=== PATIENT | female | born 1960 | race Caucasian/White ===

== ENCOUNTER 2020-09-25 18:17 | Observation (INO) | payer BC ==
[2020-09-25] MEDS ORDERED: Sodium Chloride 0.9% 1,000 ML IV SCH (19:30)
--- NOTE | 2020-09-25 20:59 | CR ---
Chest: Portable view of the chest was obtained. Comparison: No prior chest imaging is available. Heart size and mediastinum are within normal limits for portable technique. Lungs are felt to be clear with no acute parenchymal change. Minimal linear density is noted within the lateral right costophrenic angle which most likely represents small scar. Deformity is noted within the right clavicle compatible with old fracture. No acute osseous finding is otherwise seen. Impression: 1. Findings believed to be incidental as noted above. 2. Nothing acute is appreciated on portable chest x-ray. Diagnostic code #2
--- NOTE | 2020-09-25 21:13 | EDM.PDOC ---
ED HPI GENERAL MEDICAL PROBLEM - General Chief Complaint: Respiratory Problem Stated Complaint: COVID SYMPTOMS Time Seen by Provider: 09/25/20 19:11 Source of Information: Reports: Patient History Limitations: Reports: No Limitations - History of Present Illness INITIAL COMMENTS - FREE TEXT/NARRATIVE: The patient has been positive for Covid first diagnosed little over a week ago. She had been doing well until a few days ago when she started having some vague symptoms, shortness of breath, lethargy. No fever has been noted. There has been a light cough at times. There are no readily identified risk factors. Patient is a non-smoker. She has not had any evaluation or treatment for potential Covid prior to coming to the ER today. - Related Data Allergies Allergy/AdvReac Type Severity Reaction Status Date / Time No Known Allergies Allergy Verified 09/25/20 18:43 Home Meds: Home Meds . [No Known Home Meds] 09/25/20 [History] Past Medical History - Past Health History Medical/Surgical History: Denies Medical/Surgical History Social & Family History - Tobacco Use Tobacco Use Status *Q: Never Tobacco User - Caffeine Use Caffeine Use: Reports: None - Recreational Drug Use Recreational Drug Use: No ED ROS GENERAL - Review of Systems Review Of Systems: Comprehensive ROS is negative, except as noted in HPI. ED EXAM, GENERAL - Physical Exam Exam: See Below Free Text/Narrative:: Patient is alert but a bit listless. Skin is warm and dry with normal turgor. Head normocephalic atraumatic. EOMI PERRLA. Neck is supple without jugular venous distention. Lungs are notable only for somewhat decreased breath sounds bilaterally. Heart is regular without abnormal heart sounds. Abdomen is soft nontender without guarding or rebound. There is no peripheral edema cyanosis or clubbing of the digits. Neurologically patient is intact with fluent speech and no sensory or motor deficit. Patient's mood and affect are normal. #1 Interpretation EKG Date: 09/25/20 Time: 19:55 Rhythm: NSR Rate (Beats/Min): 86 [place]: Normal P-Wave: Present QRS: Normal ST-T: Normal QT: Normal EKG Interpretation Comments: No acute ischemic change Course - Vital Signs Text/Narrative:: The patient's chest x-ray is fairly unremarkable. However she is hypoxemic. White count is low. Discussed fully with patient. She is positive for Covid. She is admitted to the hospital and Solu-Medrol Rocephin and Zithromax have been initiated. Dr. Lr is aware and will be taking care of the patient as hospitalist. Last Recorded V/S: Last Vital Signs Temp 38.7 C H 09/25/20 18:39 Pulse 88 09/25/20 18:39 Resp 18 09/25/20 18:39 BP 128/73 09/25/20 18:39 Pulse Ox 96 09/25/20 18:39 - Orders/Labs/Meds Orders: Active Orders 24 hr Category Date Time Status EKG Documentation Completion [RC] STAT Care 09/25/20 19:26 Active Oxygen Therapy, ED [] ASDIRECTED Care 09/25/20 21:14 Active RT Arterial Blood Gases, ABG [] Click to Edit Care 09/25/20 19:28 Active CULTURE BLOOD [BC] Stat Lab 09/25/20 19:45 Received CULTURE BLOOD [BC] Stat Lab 09/25/20 19:50 Received Sodium Chloride 0.9% [Normal Saline] 1,000 ml Med 09/25/20 19:30 Active IV ASDIRECTED Blood Culture x2 Reflex Set [OM.PC] Stat Oth 09/25/20 19:26 Ordered Medication Orders Sodium Chloride (Normal Saline) 1,000 mls @ 100 mls/hr IV ASDIRECTED OBIE Last Admin: 09/25/20 19:56 Dose: 100 mls/hr Documented by: MARILIA Labs: Laboratory Tests 09/25/20 09/25/20 09/25/20 Range/Units 19:50 19:50 19:50 WBC 2.85 L (3.98-10.04) K/mm3 RBC 4.72 (3.98-5.22) M/mm3 Hgb 13.7 (11.2-15.7) gm/dl Hct 39.6 (34.1-44.9) % MCV 83.9 (79.4-94.8) fl MCH 29.0 (25.6-32.2) pg MCHC 34.6 (32.2-35.5) g/dl RDW Std Deviation 35.9 L (36.4-46.3) fL Plt Count 199 D (182-369) K/mm3 MPV 9.4 (9.4-12.3) fl Neutrophils % (Manual) 65 H (40-60) % Band Neutrophils % 0 (0-10) % Lymphocytes % (Manual) 26 (20-40) % Atypical Lymphs % 0 % Monocytes % (Manual) 9 (2-10) % Eosinophils % (Manual) 0 L (0.7-5.8) % Basophils % (Manual) 0 L (0.1-1.2) Platelet Estimate Adequate RBC Morph Comment Normal D-Dimer, Quantitative 0.50 (0.19-0.50) mg/L Puncture Site ABG pH (7.35-7.45) ABG pCO2 (35.0-45.0) mmHg ABG pO2 (80.0-100.0) mmHg ABG HCO3 (22.0-26.0) meq/L ABG O2 Saturation (96.0-97.0) % ABG Base Excess (-2-2.0) Sunday Test A-a Gradient mmHg O2 Delivery Device Oxygen Flow Rate FiO2 (21.00-100.00) % Sodium 134 L (136-145) mEq/L Potassium 3.8 (3.5-5.1) mEq/L Chloride 96 L (98-107) mEq/L Carbon Dioxide 26 (21-32) mEq/L Anion Gap 15.8 H (5-15) BUN 19 H (7-18) mg/dL Creatinine 1.2 H (0.55-1.02) mg/dL Est Cr Clr Drug Dosing 43.74 mL/min Estimated GFR (MDRD) 46 (>60) mL/min BUN/Creatinine Ratio 15.8 (14-18) Glucose 100 (80-115) mg/dL Calcium 8.8 (8.5-10.1) mg/dL Magnesium 2.2 (1.8-2.4) mg/dl Total Bilirubin 0.6 (0.2-1.0) mg/dL AST 33 (15-37) U/L ALT 39 (14-59) U/L Alkaline Phosphatase 60 (46-116) U/L Troponin I < 0.017 (0.00-0.056) ng/mL Total Protein 8.0 (6.4-8.2) g/dl Albumin 3.9 (3.4-5.0) g/dl Globulin 4.1 gm/dL Albumin/Globulin Ratio 1.0 (1-2) Lipase 206 (73-393) U/L TSH 3rd Generation 2.145 (0.358-3.74) uIU/mL Urine Color (Yellow) Urine Appearance (Clear) Urine pH (5.0-8.0) Ur Specific [place] (1.005-1.030) Urine Protein (Negative) Urine Glucose (UA) (Negative) Urine Ketones (Negative) Urine Occult Blood (Negative) Urine Nitrite (Negative) Urine Bilirubin (Negative) Urine Urobilinogen (0.2-1.0) Ur Leukocyte Esterase (Negative) Urine RBC (0-5) /hpf Urine WBC (0-5) /hpf Ur Squamous Epith Cells (0-5) /hpf Urine Bacteria (FEW) /hpf Urine Mucus (FEW) /hpf SARS-CoV-2 RNA (CARMENZA) (NEGATIVE) 09/25/20 09/25/20 09/25/20 Range/Units 20:07 20:53 21:25 WBC (3.98-10.04) K/mm3 RBC (3.98-5.22) M/mm3 Hgb (11.2-15.7) gm/dl Hct (34.1-44.9) % MCV (79.4-94.8) fl MCH (25.6-32.2) pg MCHC (32.2-35.5) g/dl RDW Std Deviation (36.4-46.3) fL Plt Count (182-369) K/mm3 MPV (9.4-12.3) fl Neutrophils % (Manual) (40-60) % Band Neutrophils % (0-10) % Lymphocytes % (Manual) (20-40) % Atypical Lymphs % % Monocytes % (Manual) (2-10) % Eosinophils % (Manual) (0.7-5.8) % Basophils % (Manual) (0.1-1.2) Platelet Estimate RBC Morph Comment D-Dimer, Quantitative (0.19-0.50) mg/L Puncture Site Lt radial ABG pH 7.43 (7.35-7.45) ABG pCO2 34.2 L (35.0-45.0) mmHg ABG pO2 69.0 L (80.0-100.0) mmHg ABG HCO3 22.5 (22.0-26.0) meq/L ABG O2 Saturation 94.3 L (96.0-97.0) % ABG Base Excess -0.6 (-2-2.0) Sunday Test Positive A-a Gradient 38 mmHg O2 Delivery Device Room air Oxygen Flow Rate 0.0 FiO2 21.00 (21.00-100.00) % Sodium (136-145) mEq/L Potassium (3.5-5.1) mEq/L Chloride (98-107) mEq/L Carbon Dioxide (21-32) mEq/L Anion Gap (5-15) BUN (7-18) mg/dL Creatinine (0.55-1.02) mg/dL Est Cr Clr Drug Dosing mL/min Estimated GFR (MDRD) (>60) mL/min BUN/Creatinine Ratio (14-18) Glucose (80-115) mg/dL Calcium (8.5-10.1) mg/dL Magnesium (1.8-2.4) mg/dl Total Bilirubin (0.2-1.0) mg/dL AST (15-37) U/L ALT (14-59) U/L Alkaline Phosphatase (46-116) U/L Troponin I (0.00-0.056) ng/mL Total Protein (6.4-8.2) g/dl Albumin (3.4-5.0) g/dl Globulin gm/dL Albumin/Globulin Ratio (1-2) Lipase (73-393) U/L TSH 3rd Generation (0.358-3.74) uIU/mL Urine Color Light yellow (Yellow) Urine Appearance Clear (Clear) Urine pH 6.0 (5.0-8.0) Ur Specific [place] 1.015 (1.005-1.030) Urine Protein Trace H (Negative) Urine Glucose (UA) Negative (Negative) Urine Ketones Negative (Negative) Urine Occult Blood Negative (Negative) Urine Nitrite Negative (Negative) Urine Bilirubin Negative (Negative) Urine Urobilinogen 0.2 (0.2-1.0) Ur Leukocyte Esterase Negative (Negative) Urine RBC 0-5 (0-5) /hpf Urine WBC 0-5 (0-5) /hpf Ur Squamous Epith Cells 0-5 (0-5) /hpf Urine Bacteria Few (FEW) /hpf Urine Mucus Few (FEW) /hpf SARS-CoV-2 RNA (CARMENZA) Positive H (NEGATIVE) Meds: Medications Generic Name Dose Route Start Last Admin Trade Name Dann PRN Reason Stop Dose Admin Sodium Chloride 1,000 mls @ 100 mls/hr 09/25/20 19:30 09/25/20 19:56 Normal Saline IV 100 mls/hr ASDIRECTED OBIE Administration Departure - Departure Time of Disposition: 22:23 Disposition: Admitted As Inpatient 64 Condition: Fair Clinical Impression: SARS-CoV-2 positive, Hypoxemia Leukopenia Qualifiers: Leukopenia type: unspecified Qualified Code(s): D72.819 - Decreased white blood cell count, unspecified - Discharge Information Referrals: Cathi Hauser MD [Primary Care Provider] - Forms: ED Department Discharge Sepsis Event Note (ED) - Evaluation Sepsis Screening Result: No Definite Risk - Focused Exam Vital Signs: Vital Signs Temp Pulse Resp BP Pulse Ox 09/25/20 18:39 38.7 C H 88 18 128/73 96 - My Orders Last 24 Hours: My Active Orders 09/25/20 19:26 EKG Documentation Completion [RC] STAT Blood Culture x2 Reflex Set [OM.PC] Stat 09/25/20 19:28 RT Arterial Blood Gases, ABG [RC] Click to Edit 09/25/20 19:30 Sodium Chloride 0.9% [Normal Saline] 1,000 ml IV ASDIRECTED 09/25/20 19:45 CULTURE BLOOD [BC] Stat 09/25/20 19:50 CULTURE BLOOD [BC] Stat 09/25/20 21:14 Oxygen Therapy, ED [RC] ASDIRECTED - Assessment/Plan Last 24 Hours: My Active Orders 09/25/20 19:26 EKG Documentation Completion [RC] STAT Blood Culture x2 Reflex Set [OM.PC] Stat 09/25/20 19:28 RT Arterial Blood Gases, ABG [RC] Click to Edit 09/25/20 19:30 Sodium Chloride 0.9% [Normal Saline] 1,000 ml IV ASDIRECTED 09/25/20 19:45 CULTURE BLOOD [BC] Stat 09/25/20 19:50 CULTURE BLOOD [BC] Stat 09/25/20 21:14 Oxygen Therapy, ED [RC] ASDIRECTED
[2020-09-25] MEDS ORDERED: methylPREDNISolone Sodium Succinate 125 MG/2 ML SDV IVPUSH ONE (22:33)
[2020-09-25] MEDS ORDERED: cefTRIAXone 1 GM AdvVial IV ONE (22:44)
[2020-09-25] MEDS ORDERED: Sodium Chloride 0.9% 100 ML ONE (22:45)
[2020-09-25] MEDS ORDERED: cefTRIAXone 1 GM in Sodium Chloride 0.9% 100 ML IV SCH (22:45)
[2020-09-25] MEDS ORDERED: Azithromycin 500 MG in Sodium Chloride 0.9% 250 ML IV SCH (22:45)
[2020-09-25] MEDS ORDERED: Ondansetron 4 MG/2 ML SDV ONE (23:05)
[2020-09-25] MEDS ORDERED: Ondansetron 4 MG/2 ML SDV IVPUSH ONE ×2 (23:07→23:12)
[2020-09-25] MEDS ORDERED: Acetaminophen 325 MG Tab PO PRN (23:19)
[2020-09-25] MEDS ORDERED: Albuterol 0.083% 2.5 MG/3 ML Neb Soln NEB PRN (23:19)
[2020-09-25] MEDS ORDERED: Ibuprofen 600 MG Tab PO PRN (23:19)
[2020-09-25] MEDS ORDERED: Ondansetron 4 MG/2 ML SDV IV PRN (23:19)
[2020-09-25] MEDS ORDERED: Albuterol/Ipratropium 3.0-0.5 MG/3 ML Neb Soln NEB PRN (23:19)
[2020-09-25] MEDS ORDERED: Famotidine 20 MG Tab PO SCH (23:30)
[2020-09-26] MEDS: Aspirin 325 MG Tab.EC PO SCH ×2 (00:44→08:35)
--- NOTE | 2020-09-26 07:23 | PCM.HP.2 ---
H&P History of Present Illness - General Date of Service: 09/26/20 Admit Problem/Dx: Admission Diagnosis/Problem Admission Diagnosis/Problem Hypoxia Source of Information: Patient, Old Records, Provider, RN, RN Notes Reviewed History Limitations: Reports: No Limitations - History of Present Illness Initial Comments - Free Text/Narative: This is a 60-year-old female who presents to ED on the evening of 09/25/2020 with Covid symptoms. She reports her was first diagnosed with Covid a little over a week ago and she has been doing well until a few days prior. She started to have vague symptoms, shortness of breath and lethargy. No fever noted but there has been a light cough. She is not a smoker. Denies any prior evaluation or treatment for Covid prior to coming to the ED. In the ED twelve-lead EKG is obtained showing a sinus rhythm at 86 bpm with no acute ischemic changes. Chest x-ray is obtained showing incidental findings and nothing acute. Temp in the ED is 38.7 Celsius. Pulse 88. Respirations 18. Blood pressure 128/73. Pulse ox 96% on room air. With Zofran, Rocephin, and 125 mg Solu-Medrol. Labs are obtained with leukopenia noted at 2.85. Hemoglobin 13.7. Platelet 199,000. Neutrophils elevated 65%. There is no bandemia. D-dimer 0.5. Sodium is 134. Potassium 3.8. Chloride 96. Carbon dioxide 26. Anion gap is 15.8. BUN is 19, creatinine 1.2, GFR is 46. Glucose is 100. Calcium 8.8. Magnesium 2.2. Total bilirubin 0.6. AST is 33, ALT 39, alkaline phosphatase 60. Troponin less than 0.017. Protein 8.0. Albumin 3.9. TSH is 2.145. Lipase 206. ABGs obtained in the left radial with a pH of 7.43. PCO2 of 34.2. PO2 of 69.0. HCO3 is 22.5. O2 saturation is 94.3. This is obtained on room air. UA is obtained and is negative however trace protein is noted. SARS-CoV-2 RNA is positive. Patient is subsequent admitted to the medical floor observation status with telemetry for management of her Covid symptoms. Of note: ED provider inadvertently ordered patient inpatient, however hospitalist provider requested inpatient as it is felt patient will not require inpatient length of stay and will likely be discharged in less than 48 hours. She denies any prior past medical history. She sees Dr. Martínez as a primary care provider. She is a full code - Related Data Allergies/Adverse Reactions: Allergies Allergy/AdvReac Type Severity Reaction Status Date / Time No Known Allergies Allergy Verified 09/25/20 18:43 Home Medications: Home Meds Acetaminophen [Tylenol] 2 tab PO Q4HR PRN 09/26/20 [History] Cholecalciferol (Vitamin D3) [Vitamin D3] 1,000 unit PO QAM 09/26/20 [History] L.acidoph,Paracasei, B.lactis [Probiotic] 1 each PO DAILY 09/26/20 [History] Multivit with Calcium,Iron,Min [One Daily Women's] 1 tab PO DAILY 09/26/20 [ History] Zinc 1 tab PO DAILY 09/26/20 [History] Past Medical History - Past Health History Medical/Surgical History: Denies 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 Denies: Headaches, Sore Throat Pulmonary: Reports: No Symptoms. Denies: Shortness of Breath, Wheezing, Cough, Sputum Cardiovascular: Reports: No Symptoms. Denies: Chest Pain, Dyspnea on Exertion, Edema Gastrointestinal: Reports: No Symptoms. Denies: Abdominal Pain, Constipation, Diarrhea, Nausea, Vomiting Genitourinary: Reports: No Symptoms Musculoskeletal: Reports: No Symptoms Skin: Reports: No Symptoms. Denies: Cyanosis Psychiatric: Reports: No Symptoms. Denies: Confusion Neurological: Reports: No Symptoms. Denies: Pre-Existing Deficit, Difficulty Walking, Gait Disturbance Hematologic/Lymphatic: Reports: No Symptoms Immunologic: Reports: No Symptoms Exam - Exam Exam: See Below - Vital Signs Vital Signs: Last Vital Signs Temp 97.7 F 09/26/20 05:25 Pulse 72 09/26/20 05:25 Resp 18 09/26/20 05:25 BP 93/47 L 09/26/20 05:25 Pulse Ox 94 L 09/26/20 06:27 Weight: 142 lb 1.6 oz - Exam Quality Assessment: DVT Prophylaxis. No: Supplemental Oxygen, Urinary Catheter General: Alert, Oriented, Cooperative, Mild Distress (Looks ill) HEENT: Conjunctiva Clear, EACs Clear, Mucosa Moist & [place], Posterior Pharynx Clear Neck: Supple, Trachea Midline Lungs: Clear to Auscultation, Normal Respiratory Effort, Decreased Breath Sounds Cardiovascular: Regular Rate, Regular Rhythm GI/Abdominal Exam: Normal Bowel Sounds, Soft, Non-Tender, No Distention (Female) Exam: Deferred Rectal (Female) Exam: Deferred Back Exam: Normal Inspection, Full Range of Motion Extremities: Normal Inspection, Normal Range of Motion, Non-Tender, No Pedal Edema, Normal Capillary Refill Peripheral Pulses: 2+: Radial (L), Radial (R), Dorsalis Pedis (L), Dorsalis Pedis (R) Skin: Warm, Dry, Intact Neurological: Cranial Nerves Intact (Grossly ) Neuro Extensive - Mental Status: Alert, Oriented x3, Normal Mood/Affect - Patient Data Lab Results Last 24 hrs: Laboratory Results - last 24 hr 09/25/20 09/25/20 09/25/20 Range/Units 19:50 19:50 19:50 WBC 2.85 L (3.98-10.04) K/mm3 RBC 4.72 (3.98-5.22) M/mm3 Hgb 13.7 (11.2-15.7) gm/dl Hct 39.6 (34.1-44.9) % MCV 83.9 (79.4-94.8) fl MCH 29.0 (25.6-32.2) pg MCHC 34.6 (32.2-35.5) g/dl RDW Std Deviation 35.9 L (36.4-46.3) fL Plt Count 199 D (182-369) K/mm3 MPV 9.4 (9.4-12.3) fl Neut % (Auto) (34.0-71.1) % Lymph % (Auto) (19.3-51.7) % Whiteside % (Auto) (4.7-12.5) % Eos % (Auto) (0.7-5.8) Baso % (Auto) (0.1-1.2) % Neut # (Auto) (1.56-6.13) K/mm3 Lymph # (Auto) (1.18-3.74) K/mm3 Whiteside # (Auto) (0.24-0.36) K/mm3 Eos # (Auto) (0.04-0.36) K/mm3 Baso # (Auto) (0.01-0.08) K/mm3 Neutrophils % (Manual) 65 H (40-60) % Band Neutrophils % 0 (0-10) % Lymphocytes % (Manual) 26 (20-40) % Atypical Lymphs % 0 % Monocytes % (Manual) 9 (2-10) % Eosinophils % (Manual) 0 L (0.7-5.8) % Basophils % (Manual) 0 L (0.1-1.2) Platelet Estimate Adequate RBC Morph Comment Normal D-Dimer, Quantitative 0.50 (0.19-0.50) mg/L Puncture Site ABG pH (7.35-7.45) ABG pCO2 (35.0-45.0) mmHg ABG pO2 (80.0-100.0) mmHg ABG HCO3 (22.0-26.0) meq/L ABG O2 Saturation (96.0-97.0) % ABG Base Excess (-2-2.0) Sunday Test A-a Gradient mmHg O2 Delivery Device Oxygen Flow Rate FiO2 (21.00-100.00) % Sodium 134 L (136-145) mEq/L Potassium 3.8 (3.5-5.1) mEq/L Chloride 96 L (98-107) mEq/L Carbon Dioxide 26 (21-32) mEq/L Anion Gap 15.8 H (5-15) BUN 19 H (7-18) mg/dL Creatinine 1.2 H (0.55-1.02) mg/dL Est Cr Clr Drug Dosing 43.74 mL/min Estimated GFR (MDRD) 46 (>60) mL/min BUN/Creatinine Ratio 15.8 (14-18) Glucose 100 (80-115) mg/dL Calcium 8.8 (8.5-10.1) mg/dL Magnesium 2.2 (1.8-2.4) mg/dl Total Bilirubin 0.6 (0.2-1.0) mg/dL AST 33 (15-37) U/L ALT 39 (14-59) U/L Alkaline Phosphatase 60 (46-116) U/L Troponin I < 0.017 (0.00-0.056) ng/mL Total Protein 8.0 (6.4-8.2) g/dl Albumin 3.9 (3.4-5.0) g/dl Globulin 4.1 gm/dL Albumin/Globulin Ratio 1.0 (1-2) Lipase 206 (73-393) U/L TSH 3rd Generation 2.145 (0.358-3.74) uIU/mL Urine Color (Yellow) Urine Appearance (Clear) Urine pH (5.0-8.0) Ur Specific Jay (1.005-1.030) Urine Protein (Negative) Urine Glucose (UA) (Negative) Urine Ketones (Negative) Urine Occult Blood (Negative) Urine Nitrite (Negative) Urine Bilirubin (Negative) Urine Urobilinogen (0.2-1.0) Ur Leukocyte Esterase (Negative) Urine RBC (0-5) /hpf Urine WBC (0-5) /hpf Ur Squamous Epith Cells (0-5) /hpf Urine Bacteria (FEW) /hpf Urine Mucus (FEW) /hpf SARS-CoV-2 RNA (CARMENZA) (NEGATIVE) 09/25/20 09/25/20 09/25/20 Range/Units 20:07 20:53 21:25 WBC (3.98-10.04) K/mm3 RBC (3.98-5.22) M/mm3 Hgb (11.2-15.7) gm/dl Hct (34.1-44.9) % MCV (79.4-94.8) fl MCH (25.6-32.2) pg MCHC (32.2-35.5) g/dl RDW Std Deviation (36.4-46.3) fL Plt Count (182-369) K/mm3 MPV (9.4-12.3) fl Neut % (Auto) (34.0-71.1) % Lymph % (Auto) (19.3-51.7) % Whiteside % (Auto) (4.7-12.5) % Eos % (Auto) (0.7-5.8) Baso % (Auto) (0.1-1.2) % Neut # (Auto) (1.56-6.13) K/mm3 Lymph # (Auto) (1.18-3.74) K/mm3 Whiteside # (Auto) (0.24-0.36) K/mm3 Eos # (Auto) (0.04-0.36) K/mm3 Baso # (Auto) (0.01-0.08) K/mm3 Neutrophils % (Manual) (40-60) % Band Neutrophils % (0-10) % Lymphocytes % (Manual) (20-40) % Atypical Lymphs % % Monocytes % (Manual) (2-10) % Eosinophils % (Manual) (0.7-5.8) % Basophils % (Manual) (0.1-1.2) Platelet Estimate RBC Morph Comment D-Dimer, Quantitative (0.19-0.50) mg/L Puncture Site Lt radial ABG pH 7.43 (7.35-7.45) ABG pCO2 34.2 L (35.0-45.0) mmHg ABG pO2 69.0 L (80.0-100.0) mmHg ABG HCO3 22.5 (22.0-26.0) meq/L ABG O2 Saturation 94.3 L (96.0-97.0) % ABG Base Excess -0.6 (-2-2.0) Sunday Test Positive A-a Gradient 38 mmHg O2 Delivery Device Room air Oxygen Flow Rate 0.0 FiO2 21.00 (21.00-100.00) % Sodium (136-145) mEq/L Potassium (3.5-5.1) mEq/L Chloride (98-107) mEq/L Carbon Dioxide (21-32) mEq/L Anion Gap (5-15) BUN (7-18) mg/dL Creatinine (0.55-1.02) mg/dL Est Cr Clr Drug Dosing mL/min Estimated GFR (MDRD) (>60) mL/min BUN/Creatinine Ratio (14-18) Glucose (80-115) mg/dL Calcium (8.5-10.1) mg/dL Magnesium (1.8-2.4) mg/dl Total Bilirubin (0.2-1.0) mg/dL AST (15-37) U/L ALT (14-59) U/L Alkaline Phosphatase (46-116) U/L Troponin I (0.00-0.056) ng/mL Total Protein (6.4-8.2) g/dl Albumin (3.4-5.0) g/dl Globulin gm/dL Albumin/Globulin Ratio (1-2) Lipase (73-393) U/L TSH 3rd Generation (0.358-3.74) uIU/mL Urine Color Light yellow (Yellow) Urine Appearance Clear (Clear) Urine pH 6.0 (5.0-8.0) Ur Specific Jay 1.015 (1.005-1.030) Urine Protein Trace H (Negative) Urine Glucose (UA) Negative (Negative) Urine Ketones Negative (Negative) Urine Occult Blood Negative (Negative) Urine Nitrite Negative (Negative) Urine Bilirubin Negative (Negative) Urine Urobilinogen 0.2 (0.2-1.0) Ur Leukocyte Esterase Negative (Negative) Urine RBC 0-5 (0-5) /hpf Urine WBC 0-5 (0-5) /hpf Ur Squamous Epith Cells 0-5 (0-5) /hpf Urine Bacteria Few (FEW) /hpf Urine Mucus Few (FEW) /hpf SARS-CoV-2 RNA (CARMENZA) Positive H (NEGATIVE) 09/26/20 Range/Units 05:53 WBC 1.92 L* (3.98-10.04) K/mm3 RBC 4.53 (3.98-5.22) M/mm3 Hgb 13.1 (11.2-15.7) gm/dl Hct 38.0 (34.1-44.9) % MCV 83.9 (79.4-94.8) fl MCH 28.9 (25.6-32.2) pg MCHC 34.5 (32.2-35.5) g/dl RDW Std Deviation 35.9 L (36.4-46.3) fL Plt Count 191 (182-369) K/mm3 MPV 9.8 (9.4-12.3) fl Neut % (Auto) 72.9 H (34.0-71.1) % Lymph % (Auto) 22.9 (19.3-51.7) % Whiteside % (Auto) 4.2 L (4.7-12.5) % Eos % (Auto) 0 L (0.7-5.8) Baso % (Auto) 0.0 L (0.1-1.2) % Neut # (Auto) 1.40 L (1.56-6.13) K/mm3 Lymph # (Auto) 0.44 L (1.18-3.74) K/mm3 [place] # (Auto) 0.08 L (0.24-0.36) K/mm3 Eos # (Auto) 0.00 L (0.04-0.36) K/mm3 Baso # (Auto) 0.00 L (0.01-0.08) K/mm3 Neutrophils % (Manual) (40-60) % Band Neutrophils % (0-10) % Lymphocytes % (Manual) (20-40) % Atypical Lymphs % % Monocytes % (Manual) (2-10) % Eosinophils % (Manual) (0.7-5.8) % Basophils % (Manual) (0.1-1.2) Platelet Estimate RBC Morph Comment D-Dimer, Quantitative (0.19-0.50) mg/L Puncture Site ABG pH (7.35-7.45) ABG pCO2 (35.0-45.0) mmHg ABG pO2 (80.0-100.0) mmHg ABG HCO3 (22.0-26.0) meq/L ABG O2 Saturation (96.0-97.0) % ABG Base Excess (-2-2.0) Sunday Test A-a Gradient mmHg O2 Delivery Device Oxygen Flow Rate FiO2 (21.00-100.00) % Sodium (136-145) mEq/L Potassium (3.5-5.1) mEq/L Chloride (98-107) mEq/L Carbon Dioxide (21-32) mEq/L Anion Gap (5-15) BUN (7-18) mg/dL Creatinine (0.55-1.02) mg/dL Est Cr Clr Drug Dosing mL/min Estimated GFR (MDRD) (>60) mL/min BUN/Creatinine Ratio (14-18) Glucose (80-115) mg/dL Calcium (8.5-10.1) mg/dL Magnesium (1.8-2.4) mg/dl Total Bilirubin (0.2-1.0) mg/dL AST (15-37) U/L ALT (14-59) U/L Alkaline Phosphatase (46-116) U/L Troponin I (0.00-0.056) ng/mL Total Protein (6.4-8.2) g/dl Albumin (3.4-5.0) g/dl Globulin gm/dL Albumin/Globulin Ratio (1-2) Lipase (73-393) U/L TSH 3rd Generation (0.358-3.74) uIU/mL Urine Color (Yellow) Urine Appearance (Clear) Urine pH (5.0-8.0) Ur Specific Jay (1.005-1.030) Urine Protein (Negative) Urine Glucose (UA) (Negative) Urine Ketones (Negative) Urine Occult Blood (Negative) Urine Nitrite (Negative) Urine Bilirubin (Negative) Urine Urobilinogen (0.2-1.0) Ur Leukocyte Esterase (Negative) Urine RBC (0-5) /hpf Urine WBC (0-5) /hpf Ur Squamous Epith Cells (0-5) /hpf Urine Bacteria (FEW) /hpf Urine Mucus (FEW) /hpf SARS-CoV-2 RNA (CARMENZA) (NEGATIVE) Result Diagrams: 09/26/20 05:53 09/26/20 05:53 Sepsis Event Note - Evaluation Sepsis Screening Result: No Definite Risk - Focused Exam Vital Signs: Vital Signs Temp Temp Pulse Pulse Resp BP BP 09/26/20 06:27 09/26/20 05:25 97.7 F 72 18 93/47 L 09/26/20 02:22 99.3 F 09/26/20 01:11 100.4 F 09/26/20 01:09 100.4 F 09/26/20 00:09 102.4 F H 88 16 103/63 09/25/20 23:42 98.9 F 88 18 106/69 Pulse Ox Pulse Ox 09/26/20 06:27 94 L 09/26/20 05:25 95 09/26/20 02:22 09/26/20 01:11 09/26/20 01:09 09/26/20 00:09 92 L 09/25/20 23:42 92 L - Problem List (1) Fever SNOMED Code(s): 862508247 ICD Code: R50.9 - FEVER, UNSPECIFIED Status: Acute Current Visit: Yes (2) Hypoxemia SNOMED Code(s): 450222315 ICD Code: R09.02 - HYPOXEMIA Status: Acute Current Visit: Yes (3) Leukopenia SNOMED Code(s): 46127229, 471049022 ICD Code: D72.819 - DECREASED WHITE BLOOD CELL COUNT, UNSPECIFIED Status: Acute Current Visit: Yes Qualifiers: Leukopenia type: unspecified Qualified Code(s): D72.819 - Decreased white blood cell count, unspecified (4) SARS-CoV-2 positive SNOMED Code(s): 0884159639960801 ICD Code: U07.1 - COVID-19 Status: Acute Current Visit: Yes (5) Volume depletion SNOMED Code(s): 499758821 ICD Code: E86.9 - VOLUME DEPLETION, UNSPECIFIED Status: Acute Priority: High Current Visit: Yes Problem List Initiated/Reviewed/Updated: Yes Orders Last 24hrs: Active Orders 24 hr Category Date Time Status Patient Status [ADT] Routine ADT 09/25/20 22:47 Active Oxygen Therapy [RC] PRN Care 09/25/20 23:19 Active RT Aerosol Therapy [RC] ASDIRECTED Care 09/25/20 23:21 Active RT Arterial Blood Gases, ABG [RC] Click to Edit Care 09/25/20 19:28 Active RT Chest Physiotherapy [RC] ASDIRECTED Care 09/25/20 23:24 Active RT Incentive Spirometry [RC] ASDIRECTED Care 09/25/20 23:24 Active Up ad Shannon [RC] BID Care 09/25/20 23:19 Active VTE/DVT Education [RC] DAILY Care 09/25/20 23:19 Active Vital Signs [RC] Q4HR Care 09/25/20 23:19 Active Regular Diet [DIET] Diet 09/26/20 Breakfast Active C-REACTIVE PROTEIN [CHEM] AM Lab 09/26/20 05:53 Received CBC WITH AUTO DIFF [HEME] AM Lab 09/26/20 05:53 Results CMP [COMPREHENSIVE METABOLIC PN,CMP] [CHEM] AM Lab 09/26/20 05:53 Received CULTURE BLOOD [BC] Stat Lab 09/25/20 19:45 Received CULTURE BLOOD [BC] Stat Lab 09/25/20 19:50 Received DD [D-DIMER QUANTITATIVE] [COAG] AM Lab 09/26/20 05:53 Received MAGNESIUM [CHEM] AM Lab 09/26/20 05:53 Received PHOSPHORUS [CHEM] AM Lab 09/26/20 05:53 Received Acetaminophen [TylenoL] Med 09/25/20 23:19 Active 650 mg PO Q4H PRN Albuterol [Proventil Neb Soln] Med 09/25/20 23:19 Active 2.5 mg NEB Q2H PRN Albuterol/Ipratropium [DuoNeb 3.0-0.5 MG/3 ML] Med 09/25/20 23:19 Active 3 ml NEB Q4H PRN Aspirin [Ecotrin] Med 09/25/20 23:30 Active 325 mg PO DAILY Cholecalciferol (Vitamin D3) [Vitamin D3] Med 09/26/20 09:00 Active 5,000 unit PO DAILY Enoxaparin [Lovenox] Med 09/26/20 09:00 Active 40 mg SUBCUT DAILY Famotidine [Pepcid] Med 09/25/20 23:30 Active 20 mg PO BID Ibuprofen [Motrin] Med 09/25/20 23:19 Active 600 mg PO Q6H PRN Melatonin Med 09/26/20 21:00 Active 9 mg PO BEDTIME Ondansetron [Zofran] Med 09/25/20 23:19 Active 4 mg IV Q4H PRN Zinc Sulfate [Zincate] Med 09/26/20 09:00 Active 220 mg PO DAILY Blood Culture x2 Reflex Set [OM.PC] Stat Oth 09/25/20 19:26 Ordered Pulse Oximetry Continuous Monitoring [OM.PC] Routine Oth 09/26/20 00:00 Active Resuscitation Status Routine Resus Stat 09/25/20 23:19 Ordered Medication Orders Acetaminophen (Acetaminophen 325 Mg Tab) 650 mg PO Q4H PRN PRN Reason: Pain (Mild 1-3)/fever Last Admin: 09/26/20 01:11 Dose: 650 mg Documented by: BRADJUL Albuterol (Albuterol 0.083% 2.5 Mg/3 Ml Neb Soln) 2.5 mg NEB Q2H PRN PRN Reason: Shortness Of Breath/wheezing Albuterol/Ipratropium (Albuterol/Ipratropium 3.0-0.5 Mg/3 Ml Neb Soln) 3 ml NEB Q4H PRN PRN Reason: Shortness Of Breath/wheezing Aspirin (Aspirin 325 Mg Tab.Ec) 325 mg PO DAILY [facility] Last Admin: 09/26/20 00:44 Dose: 325 mg Documented by: GIORGIO Cholecalciferol (Cholecalciferol (Vitamin D3) 5,000 Unit Cap) 5,000 unit PO DAILY [facility] Enoxaparin Sodium (Enoxaparin 40 Mg/0.4 Ml Syringe) 40 mg SUBCUT DAILY [facility] Famotidine (Famotidine 20 Mg Tab) 20 mg PO BID [facility] Last Admin: 09/26/20 00:44 Dose: 20 mg Documented by: GIORGIO Ibuprofen (Ibuprofen 600 Mg Tab) 600 mg PO Q6H PRN PRN Reason: Pain (moderate 4-6) Melatonin (Melatonin 3 Mg Tab) 9 mg PO BEDTIME OBIE Ondansetron HCl (Ondansetron 4 Mg/2 Ml Sdv) 4 mg IV Q4H PRN PRN Reason: Nausea/Vomiting Zinc Sulfate (Zinc Sulfate 220 Mg Cap) 220 mg PO DAILY [facility] Assessment/Plan Comment:: Assessment - 09/26/2020 (admitted late 09/25/2020) * 60-year-old female presents to our ED with Covid-like symptoms. * Patient's was diagnosed with Covid approximately week prior * Patient raised ports symptoms began for her a few days prior with shortness of breath, lethargy, and vague symptoms. * Twelve-lead EKG obtained in ED shows sinus rhythm at 86 bpm with no signs of ischemia. * Patient noted to have fever in ED of 38.7 Celsius. * Labs obtained in ED and on floor: * WBC 2.85-->1.92 * Hemoglobin 13.7-->13.1 * Platelet 199,000-->191,000 * Neutrophils 65% but no bandemia-->72.9% * D-dimer 0.50-->0.50 * Sodium 134-->134 * Potassium 3.8-->3.8 * Chloride 96-->99 * Carbon dioxide 26-->21 * Anion gap 15.8-->17.8 * BUN 19-->21 * Creatinine 1.2-->1.2 * Phosphorus 5.0 * Magnesium 2.2 * GFR 46-->46 * Glucose 100-->150 * Total bilirubin 0.6-->0.3 * AST 33-->35, ALT 39-->37, alkaline phosphatase 60-->55 * Troponin less than 0.017 * Albumin 3.9-->3.4 * Lipase 206 * TSH 2.145 * UA negative but trace protein noted * ABG left radial: pH 7.43, PCO2 34.2, PO2 69.0, HCO3 of 22.5, O2 saturation 94.3, A-a gradient 38 obtained on room air * SARS Covid 2 RNA positive * Given Rocephin, Zofran, and 125 mg Solu-Medrol in the ED. * Chest x-ray shows incidental findings and nothing acute. * Patient admitted to medical surgical floor for management of COVID-19 symptoms. PLAN: Fever Hypoxemia Leukopenia SARS-CoV-2 positive Volume depletion * Tylenol/motrin for fever/pain * 1L LR bolus now * D5LR at 100ml/hr after bolus * Monitor oxygen saturations - Goal 88-95% * IS/Acapella * Prone whenever able * Ambulate TID * Albuterol/Duonebs PRN * No need for steroids now as patient is not requiring oxygen * No Abx as no signs of PNA * Will hold off Remdisivir for now * RT consultation * Airborne/Contact precautions * Telemetry/Pulse oximetry * Blood cultures pending * Daily labs * Q48hr D-Dimer * Daily ASA * Melatonin at bedtime * Zinc supplementation * Vitamin D supplementation Code status: Full code PCP: Dr. Martínez DVT prophylaxis: Lovenox Social: Patient resides with her who also has COVID-19 and is hospitalized Disposition: Admitted to [facility] observation status on telemetry for management of COVID-19 symptoms and volume depletion. Likely discharge today. - Mortality Measure Prognosis:: Good
[2020-09-26] MEDS ORDERED: Docusate Sodium 100 MG Cap PO PRN (08:01)
[2020-09-26] MEDS ORDERED: Magnesium Hydroxide 400 MG/5 ML Susp 30 ML Cup PO PRN (08:01)
[2020-09-26] MEDS ORDERED: Lactated Ringers 1,000 ML IV ONE (08:32)
[2020-09-26] MEDS ORDERED: Dextrose 5%-Lactated Ringers 1,000 ML IV SCH (08:45)
[2020-09-26] MEDS ORDERED: Enoxaparin 40 MG/0.4 ML Syringe SUBCUT SCH (09:00)
[2020-09-26] MEDS ORDERED: Saccharomyces Boulardii (Probiotic) 250 MG Cap PO SCH (09:00)
[2020-09-26] MEDS ORDERED: Cholecalciferol (Vitamin D3) 5,000 UNIT Cap PO SCH (09:00)
[2020-09-26] MEDS ORDERED: Multivitamins,Therapeutic Tab PO SCH (09:00)
[2020-09-26] MEDS ORDERED: Cholecalciferol (Vitamin D3) 25 MCG Tab PO SCH (09:00)
[2020-09-26] MEDS ORDERED: Zinc Sulfate 220 MG Cap PO SCH ×2 (09:00)
--- NOTE | 2020-09-26 13:12 | PCM.DCSUM1 ---
Discharge Summary - Hospital Course HPI Initial Comments: This is a 60-year-old female who presents to ED on the evening of 09/25/2020 with Covid symptoms. She reports her was first diagnosed with Covid a little over a week ago and she has been doing well until a few days prior. She started to have vague symptoms, shortness of breath and lethargy. No fever noted but there has been a light cough. She is not a smoker. Denies any prior evaluation or treatment for Covid prior to coming to the ED. In the ED twelve-lead EKG is obtained showing a sinus rhythm at 86 bpm with no acute ischemic changes. Chest x-ray is obtained showing incidental findings and nothing acute. Temp in the ED is 38.7 Celsius. Pulse 88. Respirations 18. Blood pressure 128/73. Pulse ox 96% on room air. With Zofran, Rocephin, and 125 mg Solu-Medrol. Labs are obtained with leukopenia noted at 2.85. Hemoglobin 13.7. Platelet 199,000. Neutrophils elevated 65%. There is no bandemia. D-dimer 0.5. Sodium is 134. Potassium 3.8. Chloride 96. Carbon dioxide 26. Anion gap is 15.8. BUN is 19, creatinine 1.2, GFR is 46. Glucose is 100. Calcium 8.8. Magnesium 2.2. Total bilirubin 0.6. AST is 33, ALT 39, alkaline phosphatase 60. Troponin less than 0.017. Protein 8.0. Albumin 3.9. TSH is 2.145. Lipase 206. ABGs obtained in the left radial with a pH of 7.43. PCO2 of 34.2. PO2 of 69.0. HCO3 is 22.5. O2 saturation is 94.3. This is obtained on room air. UA is obtained and is negative however trace protein is noted. SARS-CoV-2 RNA is positive. Patient is subsequent admitted to the medical floor observation status with telemetry for management of her Covid symptoms. Of note: ED provider inadvertently ordered patient inpatient, however hospitalist provider requested inpatient as it is felt patient will not require inpatient length of stay and will likely be discharged in less than 48 hours. She denies any prior past medical history. She sees Dr. Martínez as a primary care provider. She is a full code Diagnosis: Stroke: No - Discharge Data Discharge Date: 09/26/20 (Admit 09/25/20) Discharge Disposition: Home, Self-Care 01 Condition: Good - Referral to Home Health Primary Care Physician: Cathi Hauser MD - Discharge Diagnosis/Problem(s) (1) Fever SNOMED Code(s): 039917550 ICD Code: R50.9 - FEVER, UNSPECIFIED Status: Acute Current Visit: Yes (2) Hypoxemia SNOMED Code(s): 030606381 ICD Code: R09.02 - HYPOXEMIA Status: Ruled-out Current Visit: Yes (3) Leukopenia SNOMED Code(s): 58778382, 008978990 ICD Code: D72.819 - DECREASED WHITE BLOOD CELL COUNT, UNSPECIFIED Status: Acute Current Visit: Yes Qualifiers: Leukopenia type: unspecified Qualified Code(s): D72.819 - Decreased white blood cell count, unspecified (4) SARS-CoV-2 positive SNOMED Code(s): 2307106832982326 ICD Code: U07.1 - COVID-19 Status: Acute Current Visit: Yes (5) Volume depletion SNOMED Code(s): 615249669 ICD Code: E86.9 - VOLUME DEPLETION, UNSPECIFIED Status: Acute Priority: High Current Visit: Yes - Patient Summary/Data Consults: Consultations 09/26/20 08:01 Respiratory Care Assess and Treatment [CONS] Routine Labs Pending at D/C: None Recommended Follow-up Testing/Procedures: Follow-up with primary care provider within 7-10 days of discharge, sooner if needed. Hospital Course: This is a 4-year-old female who was admitted to the hospital floor observation status late on 09/25/2020 due to Covid symptoms. Patient's was diagnosed with Covid approximately 1 week prior and she had been doing well although started to have generalized weakness and felt like she was progressing along in a similar fashion to her 1 week prior. In the ED patient was neutropenic but otherwise CBC was unremarkable. CMP showed an elevated anion gap, elevated BUN, elevated creatinine, and a GFR 46. Patient was noted to be SARS-CoV-2 RNA positive. She was given Rocephin, Zofran, and 125 mg Solu-Medrol in the ED. Her chest x-ray showed nothing acute and other incidental findings were noted. She was admitted to the medical surgical floor. Of note initial order placed was for inpatient status however attending hospitalist had requested patient be admitted observation status and this was entered in error. This was fixed today. On the floor patient remained very stable. She was not requiring any oxygen and therefore steroids were not given. Antibiotics were discontinued as there is no indication for them. She reported she was weak and occasionally dizzy but otherwise denied any shortness of breath or other symptoms. It sounds like patient was quite adamant about being admitted because she was worried about worsening symptoms. We discussed plan of care and how given her current state we really do not have much more to offer her that cannot be done at home. Her labs indicated she did have some volume depletion she was given a liter fluid bolus and also started on D5LR at 100 mils an hour. She was noted to have a fever in the ED and initially on the floor but this has resolved. Plan will be to discharge the patient and plan for outpatient infusion of monoclonal antibodies, as the patient really did not require any significant COVID-19 treatment while here. She is already taking her home vitamin D and zinc supplementation. Vitamin D was checked here and was within normal limits. She has no concerns. She will be discharged home today. No new prescription meds. She was instructed to continue to utilize her incentive spirometer and Acapella for 1 to 2 weeks or until symptoms resolve. She was directed to take [id number] Tylenol and/or Motrin for fevers and pain as needed. She instructed to take a 81 mg baby aspirin for the next 14 days as her been some studies that have showed a possible benefit with this for Covid patients. Discharged home today. - Patient Instructions Diet: Usual Diet as Tolerated Activity: As Tolerated Showering/Bathing: May Shower Notify Provider of: Fever, Increased Pain, Nausea and/or Vomiting Other/Special Instructions: Follow-up with primary care provider within 5-7 days of discharge, sooner if needed. Recommend you start an 81mg baby aspirin and continue this for 14 days. Studies have shown there may be some benefit to this. Take tylenol or motrin for fevers. You may alternate these if needed. Follow marketing graphics specialist dosing recommendations. Record your pulse oximetry twice a day in a journal. Bring this with to all medical appointments. Your goal saturations are 88-95%. It is ok if you are highter than this. Continue to utilize your incentive spirometer (clear/blue device you inhale through) and acapella (green tube you blow through) for the next 1-2 weeks, or until symptoms resolve. Continue to prone (lay on your stomach) whenever able. You need to is olate/quarantine for a total of 20 days from when symptoms first began. You will likely be contacted by a case consultant from the [facility]. Follow their directions in regards to this. Should symptoms return or worsen contact primary care provdider or return to the Emergency Department. - Discharge Plan *PRESCRIPTION DRUG MONITORING PROGRAM REVIEWED*: No *COPY OF PRESCRIPTION DRUG MONITORING REPORT IN PATIENT LATASHA: No Home Medications: Home Meds Acetaminophen [Tylenol] 2 tab PO Q4HR PRN 09/26/20 [History] Cholecalciferol (Vitamin D3) [Vitamin D3] 1,000 unit PO QAM 09/26/20 [History] L.acidoph,Paracasei, B.lactis [Probiotic] 1 each PO DAILY 09/26/20 [History] Multivit with Calcium,Iron,Min [One Daily Women's] 1 tab PO DAILY 09/26/20 [History] Zinc 1 tab PO DAILY 09/26/20 [History] Oxygen Therapy Mode: Room Air Patient Handouts: COVID-19, How to Use an Incentive Spirometer, Coronavirus Information 09/10/19, Prevent the Spread of COVID-19 if You Are Sick - CDC, Sepsis, Self Care, Adult Forms: ED Department Discharge Referrals: Cathi Hauser MD [Primary Care Provider] - 10/03/20 2:30 pm () - Discharge Summary/Plan Comment DC Time >30 min.: No - General Info Date of Service: 09/26/20 Admission Dx/Problem (Free Text: Admission Diagnosis/Problem Admission Diagnosis/Problem Hypoxia Functional Status: Reports: Pain Controlled, Tolerating Diet, Ambulating, Urinating, Incentive Spirometry, Other (Acapella ). Denies: New Symptoms - Review of Systems General: Reports: Weakness, Fatigue, Malaise. Denies: Fever, Chills HEENT: Reports: No Symptoms. Denies: Headaches, Sore Throat Pulmonary: Reports: No Symptoms. Denies: Shortness of Breath, Cough, Sputum, Wheezing Cardiovascular: Reports: Lightheadedness (at times ). Denies: Chest Pain, Palpitations, Dyspnea on Exertion, Edema Gastrointestinal: Reports: No Symptoms. Denies: Abdominal Pain, Constipation, Diarrhea, Nausea, Vomiting Genitourinary: Reports: No Symptoms. Denies: Pain Musculoskeletal: Reports: No Symptoms Skin: Reports: No Symptoms. Denies: Cyanosis Neurological: Reports: Dizziness (at times ), Weakness. Denies: Confusion, Headache, Numbness, Pre-Existing Deficit, Seizure, Syncope, Tingling, Trouble Speaking, Difficulty Walking, Change in Speech, Gait Disturbance Psychiatric: Reports: No Symptoms - Patient Data Vitals - Most Recent: Last Vital Signs Temp 97.5 F 09/26/20 11:32 Pulse 69 09/26/20 11:32 Resp 16 09/26/20 11:32 BP 98/63 09/26/20 11:32 Pulse Ox 92 L 09/26/20 11:32 Weight - Most Recent: 142 lb 1.6 oz I&O - Last 24 hours: Intake & Output 09/25/20 09/26/20 09/26/20 22:59 06:59 14:59 Intake Total 200 Output Total 250 Balance -50 Lab Results - Last 24 hrs: Laboratory Results - last 24 hr 09/25/20 09/25/20 09/25/20 Range/Units 19:50 19:50 19:50 WBC 2.85 L (3.98-10.04) K/mm3 RBC 4.72 (3.98-5.22) M/mm3 Hgb 13.7 (11.2-15.7) gm/dl Hct 39.6 (34.1-44.9) % MCV 83.9 (79.4-94.8) fl MCH 29.0 (25.6-32.2) pg MCHC 34.6 (32.2-35.5) g/dl RDW Std Deviation 35.9 L (36.4-46.3) fL Plt Count 199 D (182-369) K/mm3 MPV 9.4 (9.4-12.3) fl Neut % (Auto) (34.0-71.1) % Lymph % (Auto) (19.3-51.7) % Runnels % (Auto) (4.7-12.5) % Eos % (Auto) (0.7-5.8) Baso % (Auto) (0.1-1.2) % Neut # (Auto) (1.56-6.13) K/mm3 Lymph # (Auto) (1.18-3.74) K/mm3 Runnels # (Auto) (0.24-0.36) K/mm3 Eos # (Auto) (0.04-0.36) K/mm3 Baso # (Auto) (0.01-0.08) K/mm3 Neutrophils % (Manual) 65 H (40-60) % Band Neutrophils % 0 (0-10) % Lymphocytes % (Manual) 26 (20-40) % Atypical Lymphs % 0 % Monocytes % (Manual) 9 (2-10) % Eosinophils % (Manual) 0 L (0.7-5.8) % Basophils % (Manual) 0 L (0.1-1.2) Manual Slide Review Platelet Estimate Adequate RBC Morph Comment Normal D-Dimer, Quantitative 0.50 (0.19-0.50) mg/L Puncture Site ABG pH (7.35-7.45) ABG pCO2 (35.0-45.0) mmHg ABG pO2 (80.0-100.0) mmHg ABG HCO3 (22.0-26.0) meq/L ABG O2 Saturation (96.0-97.0) % ABG Base Excess (-2-2.0) Sunday Test A-a Gradient mmHg O2 Delivery Device Oxygen Flow Rate FiO2 (21.00-100.00) % Sodium 134 L (136-145) mEq/L Potassium 3.8 (3.5-5.1) mEq/L Chloride 96 L (98-107) mEq/L Carbon Dioxide 26 (21-32) mEq/L Anion Gap 15.8 H (5-15) BUN 19 H (7-18) mg/dL Creatinine 1.2 H (0.55-1.02) mg/dL Est Cr Clr Drug Dosing 43.74 mL/min Estimated GFR (MDRD) 46 (>60) mL/min BUN/Creatinine Ratio 15.8 (14-18) Glucose 100 (80-115) mg/dL Calcium 8.8 (8.5-10.1) mg/dL Phosphorus (2.6-4.7) mg/dL Magnesium 2.2 (1.8-2.4) mg/dl Total Bilirubin 0.6 (0.2-1.0) mg/dL AST 33 (15-37) U/L ALT 39 (14-59) U/L Alkaline Phosphatase 60 (46-116) U/L Troponin I < 0.017 (0.00-0.056) ng/mL C-Reactive Protein (<1.0) mg/dL Total Protein 8.0 (6.4-8.2) g/dl Albumin 3.9 (3.4-5.0) g/dl Globulin 4.1 gm/dL Albumin/Globulin Ratio 1.0 (1-2) Lipase 206 (73-393) U/L Vitamin D 25-Hydroxy (30.0-100.0) ng/ml TSH 3rd Generation 2.145 (0.358-3.74) uIU/mL Urine Color (Yellow) Urine Appearance (Clear) Urine pH (5.0-8.0) Ur Specific [place] (1.005-1.030) Urine Protein (Negative) Urine Glucose (UA) (Negative) Urine Ketones (Negative) Urine Occult Blood (Negative) Urine Nitrite (Negative) Urine Bilirubin (Negative) Urine Urobilinogen (0.2-1.0) Ur Leukocyte Esterase (Negative) Urine RBC (0-5) /hpf Urine WBC (0-5) /hpf Ur Squamous Epith Cells (0-5) /hpf Urine Bacteria (FEW) /hpf Urine Mucus (FEW) /hpf SARS-CoV-2 RNA (CARMENZA) (NEGATIVE) 09/25/20 09/25/20 09/25/20 Range/Units 20:07 20:53 21:25 WBC (3.98-10.04) K/mm3 RBC (3.98-5.22) M/mm3 Hgb (11.2-15.7) gm/dl Hct (34.1-44.9) % MCV (79.4-94.8) fl MCH (25.6-32.2) pg MCHC (32.2-35.5) g/dl RDW Std Deviation (36.4-46.3) fL Plt Count (182-369) K/mm3 MPV (9.4-12.3) fl Neut % (Auto) (34.0-71.1) % Lymph % (Auto) (19.3-51.7) % Runnels % (Auto) (4.7-12.5) % Eos % (Auto) (0.7-5.8) Baso % (Auto) (0.1-1.2) % Neut # (Auto) (1.56-6.13) K/mm3 Lymph # (Auto) (1.18-3.74) K/mm3 Runnels # (Auto) (0.24-0.36) K/mm3 Eos # (Auto) (0.04-0.36) K/mm3 Baso # (Auto) (0.01-0.08) K/mm3 Neutrophils % (Manual) (40-60) % Band Neutrophils % (0-10) % Lymphocytes % (Manual) (20-40) % Atypical Lymphs % % Monocytes % (Manual) (2-10) % Eosinophils % (Manual) (0.7-5.8) % Basophils % (Manual) (0.1-1.2) Manual Slide Review Platelet Estimate RBC Morph Comment D-Dimer, Quantitative (0.19-0.50) mg/L Puncture Site Lt radial ABG pH 7.43 (7.35-7.45) ABG pCO2 34.2 L (35.0-45.0) mmHg ABG pO2 69.0 L (80.0-100.0) mmHg ABG HCO3 22.5 (22.0-26.0) meq/L ABG O2 Saturation 94.3 L (96.0-97.0) % ABG Base Excess -0.6 (-2-2.0) Sunady Test Positive A-a Gradient 38 mmHg O2 Delivery Device Room air Oxygen Flow Rate 0.0 FiO2 21.00 (21.00-100.00) % Sodium (136-145) mEq/L Potassium (3.5-5.1) mEq/L Chloride (98-107) mEq/L Carbon Dioxide (21-32) mEq/L Anion Gap (5-15) BUN (7-18) mg/dL Creatinine (0.55-1.02) mg/dL Est Cr Clr Drug Dosing mL/min Estimated GFR (MDRD) (>60) mL/min BUN/Creatinine Ratio (14-18) Glucose (80-115) mg/dL Calcium (8.5-10.1) mg/dL Phosphorus (2.6-4.7) mg/dL Magnesium (1.8-2.4) mg/dl Total Bilirubin (0.2-1.0) mg/dL AST (15-37) U/L ALT (14-59) U/L Alkaline Phosphatase (46-116) U/L Troponin I (0.00-0.056) ng/mL C-Reactive Protein (<1.0) mg/dL Total Protein (6.4-8.2) g/dl Albumin (3.4-5.0) g/dl Globulin gm/dL Albumin/Globulin Ratio (1-2) Lipase (73-393) U/L Vitamin D 25-Hydroxy (30.0-100.0) ng/ml TSH 3rd Generation (0.358-3.74) uIU/mL Urine Color Light yellow (Yellow) Urine Appearance Clear (Clear) Urine pH 6.0 (5.0-8.0) Ur Specific [place] 1.015 (1.005-1.030) Urine Protein Trace H (Negative) Urine Glucose (UA) Negative (Negative) Urine Ketones Negative (Negative) Urine Occult Blood Negative (Negative) Urine Nitrite Negative (Negative) Urine Bilirubin Negative (Negative) Urine Urobilinogen 0.2 (0.2-1.0) Ur Leukocyte Esterase Negative (Negative) Urine RBC 0-5 (0-5) /hpf Urine WBC 0-5 (0-5) /hpf Ur Squamous Epith Cells 0-5 (0-5) /hpf Urine Bacteria Few (FEW) /hpf Urine Mucus Few (FEW) /hpf SARS-CoV-2 RNA (CARMENZA) Positive H (NEGATIVE) 09/26/20 09/26/20 09/26/20 Range/Units 05:53 05:53 05:53 WBC 1.92 L* (3.98-10.04) K/mm3 RBC 4.53 (3.98-5.22) M/mm3 Hgb 13.1 (11.2-15.7) gm/dl Hct 38.0 (34.1-44.9) % MCV 83.9 (79.4-94.8) fl MCH 28.9 (25.6-32.2) pg MCHC 34.5 (32.2-35.5) g/dl RDW Std Deviation 35.9 L (36.4-46.3) fL Plt Count 191 (182-369) K/mm3 MPV 9.8 (9.4-12.3) fl Neut % (Auto) 72.9 H (34.0-71.1) % Lymph % (Auto) 22.9 (19.3-51.7) % Runnels % (Auto) 4.2 L (4.7-12.5) % Eos % (Auto) 0 L (0.7-5.8) Baso % (Auto) 0.0 L (0.1-1.2) % Neut # (Auto) 1.40 L (1.56-6.13) K/mm3 Lymph # (Auto) 0.44 L (1.18-3.74) K/mm3 Runnels # (Auto) 0.08 L (0.24-0.36) K/mm3 Eos # (Auto) 0.00 L (0.04-0.36) K/mm3 Baso # (Auto) 0.00 L (0.01-0.08) K/mm3 Neutrophils % (Manual) (40-60) % Band Neutrophils % (0-10) % Lymphocytes % (Manual) (20-40) % Atypical Lymphs % % Monocytes % (Manual) (2-10) % Eosinophils % (Manual) (0.7-5.8) % Basophils % (Manual) (0.1-1.2) Manual Slide Review Abnormal smear Platelet Estimate RBC Morph Comment D-Dimer, Quantitative 0.55 H (0.19-0.50) mg/L Puncture Site ABG pH (7.35-7.45) ABG pCO2 (35.0-45.0) mmHg ABG pO2 (80.0-100.0) mmHg ABG HCO3 (22.0-26.0) meq/L ABG O2 Saturation (96.0-97.0) % ABG Base Excess (-2-2.0) Sunday Test A-a Gradient mmHg O2 Delivery Device Oxygen Flow Rate FiO2 (21.00-100.00) % Sodium 134 L (136-145) mEq/L Potassium 3.8 (3.5-5.1) mEq/L Chloride 99 (98-107) mEq/L Carbon Dioxide 21 (21-32) mEq/L Anion Gap 17.8 H (5-15) BUN 21 H (7-18) mg/dL Creatinine 1.2 H (0.55-1.02) mg/dL Est Cr Clr Drug Dosing 40.21 mL/min Estimated GFR (MDRD) 46 (>60) mL/min BUN/Creatinine Ratio 17.5 (14-18) Glucose 150 H (80-115) mg/dL Calcium 8.0 L (8.5-10.1) mg/dL Phosphorus 5.0 H (2.6-4.7) mg/dL Magnesium 2.2 (1.8-2.4) mg/dl Total Bilirubin 0.3 (0.2-1.0) mg/dL AST 35 (15-37) U/L ALT 37 (14-59) U/L Alkaline Phosphatase 55 (46-116) U/L Troponin I (0.00-0.056) ng/mL C-Reactive Protein 1.1 H* (<1.0) mg/dL Total Protein 7.4 (6.4-8.2) g/dl Albumin 3.4 (3.4-5.0) g/dl Globulin 4.0 gm/dL Albumin/Globulin Ratio 0.9 L (1-2) Lipase (73-393) U/L Vitamin D 25-Hydroxy (30.0-100.0) ng/ml TSH 3rd Generation (0.358-3.74) uIU/mL Urine Color (Yellow) Urine Appearance (Clear) Urine pH (5.0-8.0) Ur Specific [place] (1.005-1.030) Urine Protein (Negative) Urine Glucose (UA) (Negative) Urine Ketones (Negative) Urine Occult Blood (Negative) Urine Nitrite (Negative) Urine Bilirubin (Negative) Urine Urobilinogen (0.2-1.0) Ur Leukocyte Esterase (Negative) Urine RBC (0-5) /hpf Urine WBC (0-5) /hpf Ur Squamous Epith Cells (0-5) /hpf Urine Bacteria (FEW) /hpf Urine Mucus (FEW) /hpf SARS-CoV-2 RNA (CARMENZA) (NEGATIVE) 09/26/20 Range/Units 06:20 WBC (3.98-10.04) K/mm3 RBC (3.98-5.22) M/mm3 Hgb (11.2-15.7) gm/dl Hct (34.1-44.9) % MCV (79.4-94.8) fl MCH (25.6-32.2) pg MCHC (32.2-35.5) g/dl RDW Std Deviation (36.4-46.3) fL Plt Count (182-369) K/mm3 MPV (9.4-12.3) fl Neut % (Auto) (34.0-71.1) % Lymph % (Auto) (19.3-51.7) % Runnels % (Auto) (4.7-12.5) % Eos % (Auto) (0.7-5.8) Baso % (Auto) (0.1-1.2) % Neut # (Auto) (1.56-6.13) K/mm3 Lymph # (Auto) (1.18-3.74) K/mm3 Runnels # (Auto) (0.24-0.36) K/mm3 Eos # (Auto) (0.04-0.36) K/mm3 Baso # (Auto) (0.01-0.08) K/mm3 Neutrophils % (Manual) (40-60) % Band Neutrophils % (0-10) % Lymphocytes % (Manual) (20-40) % Atypical Lymphs % % Monocytes % (Manual) (2-10) % Eosinophils % (Manual) (0.7-5.8) % Basophils % (Manual) (0.1-1.2) Manual Slide Review Platelet Estimate RBC Morph Comment D-Dimer, Quantitative (0.19-0.50) mg/L Puncture Site ABG pH (7.35-7.45) ABG pCO2 (35.0-45.0) mmHg ABG pO2 (80.0-100.0) mmHg ABG HCO3 (22.0-26.0) meq/L ABG O2 Saturation (96.0-97.0) % ABG Base Excess (-2-2.0) Sunday Test A-a Gradient mmHg O2 Delivery Device Oxygen Flow Rate FiO2 (21.00-100.00) % Sodium (136-145) mEq/L Potassium (3.5-5.1) mEq/L Chloride (98-107) mEq/L Carbon Dioxide (21-32) mEq/L Anion Gap (5-15) BUN (7-18) mg/dL Creatinine (0.55-1.02) mg/dL Est Cr Clr Drug Dosing mL/min Estimated GFR (MDRD) (>60) mL/min BUN/Creatinine Ratio (14-18) Glucose (80-115) mg/dL Calcium (8.5-10.1) mg/dL Phosphorus (2.6-4.7) mg/dL Magnesium (1.8-2.4) mg/dl Total Bilirubin (0.2-1.0) mg/dL AST (15-37) U/L ALT (14-59) U/L Alkaline Phosphatase (46-116) U/L Troponin I (0.00-0.056) ng/mL C-Reactive Protein (<1.0) mg/dL Total Protein (6.4-8.2) g/dl Albumin (3.4-5.0) g/dl Globulin gm/dL Albumin/Globulin Ratio (1-2) Lipase (73-393) U/L Vitamin D 25-Hydroxy 34.2 (30.0-100.0) ng/ml TSH 3rd Generation (0.358-3.74) uIU/mL Urine Color (Yellow) Urine Appearance (Clear) Urine pH (5.0-8.0) Ur Specific [place] (1.005-1.030) Urine Protein (Negative) Urine Glucose (UA) (Negative) Urine Ketones (Negative) Urine Occult Blood (Negative) Urine Nitrite (Negative) Urine Bilirubin (Negative) Urine Urobilinogen (0.2-1.0) Ur Leukocyte Esterase (Negative) Urine RBC (0-5) /hpf Urine WBC (0-5) /hpf Ur Squamous Epith Cells (0-5) /hpf Urine Bacteria (FEW) /hpf Urine Mucus (FEW) /hpf SARS-CoV-2 RNA (CARMENZA) (NEGATIVE) Med Orders - Current: Current Medications Acetaminophen (Acetaminophen 325 Mg Tab) 650 mg PO Q4H PRN PRN Reason: Pain (Mild 1-3)/fever Last Admin: 09/26/20 01:11 Dose: 650 mg Documented by: Albuterol (Albuterol 0.083% 2.5 Mg/3 Ml Neb Soln) 2.5 mg NEB Q2H PRN PRN Reason: Shortness Of Breath/wheezing Albuterol/Ipratropium (Albuterol/Ipratropium 3.0-0.5 Mg/3 Ml Neb Soln) 3 ml NEB Q4H PRN PRN Reason: Shortness Of Breath/wheezing Aspirin (Aspirin 325 Mg Tab.Ec) 325 mg PO DAILY [facility] Last Admin: 09/26/20 08:35 Dose: 325 mg Documented by: Cholecalciferol (Cholecalciferol (Vitamin D3) 5,000 Unit Cap) 5,000 unit PO DAILY [facility] Last Admin: 09/26/20 08:35 Dose: 5,000 unit Documented by: Docusate Sodium (Docusate Sodium 100 Mg Cap) 100 mg PO BID PRN PRN Reason: Constipation Enoxaparin Sodium (Enoxaparin 40 Mg/0.4 Ml Syringe) 40 mg SUBCUT DAILY [facility] Last Admin: 09/26/20 08:34 Dose: 40 mg Documented by: Famotidine (Famotidine 20 Mg Tab) 20 mg PO BEDTIME [facility] Dextrose/Lactated Ringer's (Dextrose 5%-Lactated Ringers) 1,000 mls @ 100 mls/hr IV ASDIRECTED [facility] Last Admin: 09/26/20 10:00 Dose: 100 mls/hr Documented by: Ibuprofen (Ibuprofen 600 Mg Tab) 600 mg PO Q6H PRN PRN Reason: Pain (moderate 4-6) Magnesium Hydroxide (Magnesium Hydroxide 400 Mg/5 Ml Susp 30 Ml Cup) 30 ml PO Q12H PRN PRN Reason: Constipation Melatonin (Melatonin 3 Mg Tab) 9 mg PO BEDTIME [facility] Multivitamins (Multivitamins,Therapeutic Tab) 1 each PO DAILY [facility] Last Admin: 09/26/20 08:35 Dose: 1 each Documented by: Ondansetron HCl (Ondansetron 4 Mg/2 Ml Sdv) 4 mg IV Q4H PRN PRN Reason: Nausea/Vomiting Saccharomyces Boulardii (Saccharomyces Boulardii (Probiotic) 250 Mg Cap) 250 mg PO DAILY [facility] Last Admin: 09/26/20 08:35 Dose: 250 mg Documented by: Zinc Sulfate (Zinc Sulfate 220 Mg Cap) 220 mg PO DAILY [facility] Last Admin: 09/26/20 08:35 Dose: 220 mg Documented by: Discontinued Medications Ceftriaxone Sodium (Ceftriaxone 1 Gm Advvial) Confirm Administered Dose 1 gm IV .[facility] Stop: 09/25/20 22:45 Last Admin: 09/25/20 23:15 Dose: Not Given Documented by: Cholecalciferol (Cholecalciferol (Vitamin D3) 25 Mcg Tab) 25 mcg PO DAILY [facility] Famotidine (Famotidine 20 Mg Tab) 20 mg PO BID [facility] Last Admin: 09/26/20 00:44 Dose: 20 mg Documented by: Sodium Chloride (Normal Saline) 1,000 mls @ 100 mls/hr IV ASDIRECTED [facility] Last Admin: 09/25/20 19:56 Dose: 100 mls/hr Documented by: Ceftriaxone Sodium 1 gm/ (Sodium Chloride) 100 mls @ 200 mls/hr IV Q24H [facility] Last Admin: 09/25/20 22:50 Dose: 200 mls/hr Documented by: Azithromycin 500 mg/ Sodium (Chloride) 250 mls @ 250 mls/hr IV Q24H [facility] Last Admin: 09/26/20 04:23 Dose: Not Given Documented by: Sodium Chloride (Normal Saline) Confirm Administered Dose 100 mls @ as directed .[facility] ONE Stop: 09/25/20 22:46 Last Admin: 09/25/20 23:15 Dose: Not Given Documented by: Lactated Ringer's (Ringers, Lactated) 1,000 mls @ 999 mls/hr IV .[facility] ONE Stop: 09/26/20 09:32 Last Admin: 09/26/20 08:44 Dose: 999 mls/hr Documented by: Methylprednisolone Sodium Succinate (Methylprednisolone Sodium Succinate 125 Mg/2 Ml Sdv) 125 mg IVPUSH ONETIME ONE Stop: 09/25/20 22:34 Last Admin: 09/25/20 22:49 Dose: 125 mg Documented by: Ondansetron HCl (Ondansetron 4 Mg/2 Ml Sdv) Confirm Administered Dose 4 mg .ROUTE .[facility] ONE Stop: 09/25/20 23:06 Last Admin: 09/25/20 23:15 Dose: Not Given Documented by: Ondansetron HCl (Ondansetron 4 Mg/2 Ml Sdv) 4 mg IVPUSH ONETIME ONE Stop: 09/25/20 23:08 Last Admin: 09/25/20 23:08 Dose: 4 mg Documented by: Ondansetron HCl (Ondansetron 4 Mg/2 Ml Sdv) 4 mg IVPUSH ONETIME ONE Stop: 09/25/20 23:13 Last Admin: 09/25/20 23:15 Dose: Not Given Documented by: Zinc Sulfate (Zinc Sulfate 220 Mg Cap) 220 mg PO DAILY OBIE - Exam Quality Assessment: Reports: DVT Prophylaxis. Denies: Supplemental Oxygen, Urine Catheter General: Reports: Alert, Oriented, Cooperative, No Acute Distress HEENT: Reports: Pupils Equal, Pupils Reactive, Mucous Membr. Moist/[place] Neck: Reports: Supple, Trachea Midline Lungs: Reports: Clear to Auscultation, Normal Respiratory Effort, Decreased Breath Sounds Cardiovascular: Reports: Regular Rate, Regular Rhythm GI/Abdominal Exam: Normal Bowel Sounds, Soft, Non-Tender, No Distention (Female) Exam: Deferred Rectal (Female) Exam: Deferred Back Exam: Reports: Normal Inspection, Full Range of Motion Extremities: Normal Inspection, Normal Range of Motion, Non-Tender, No Pedal Edema, Normal Capillary Refill Skin: Reports: Warm, Dry, Intact Neurological: Reports: No New Focal Deficit Psy/Mental Status: Reports: Alert, Normal Affect, Normal Mood
[2020-09-26] MEDS ORDERED: Famotidine 20 MG Tab PO SCH (21:00)
[2020-09-26] MEDS ORDERED: Melatonin 3 MG Tab PO SCH (21:00)
== END 2020-09-26 14:30 | disposition home or self-care (01) ==
LOC: JD.ED 18:17 → INTOOBSV 22:47 → JD.MS 22:47
PROVIDERS: ADMIT Family Medicine; ATTEND Family Medicine
DX: U07.1 COVID-19 (principal); R06.02 Shortness of breath; R50.9 Fever, unspecified; R09.02 Hypoxemia; D72.819 Decreased white blood cell count, unspecified; E86.9 Volume depletion, unspecified
CPT/HCPCS: 36415; 36600; 71045; 80053; 81001; 82306; 82803; 83690; 83735; 84100; 84443; 84484; 85007; 85025; 85027; 85379; 86140; 87040; 87635; 93005; 94667; 96365; 96375; 99285; A9270; J0696; J1650; J2405; J2930; J7030; J7120; J7121; 93010; 99219; 99283; G0378; U0002

== ENCOUNTER 2020-09-27 13:21 | Emergency (ER) | payer BC ==
--- NOTE | 2020-09-27 14:42 | EDM.PDOC ---
<Israel Damon - Last Filed: 09/27/20 20:06> ED HPI GENERAL MEDICAL PROBLEM - General Chief Complaint: General Stated Complaint: [facility] Time Seen by Provider: 09/27/20 14:06 - History of Present Illness INITIAL COMMENTS - FREE TEXT/NARRATIVE: 60-year-old female presents the emergency room with diarrhea that started this morning. He was brought in by EMS Patient is weak and unable to ambulate and just generally feels rotten. Patient was discharged from the hospital yesterday after being admitted on the first with Covid. She is not requiring supplemental oxygen. She has these coughing fits and she is very uncomfortable with this. The patient presents today just because she is weak and tired. 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 Denies: Fever, Chills HEENT: Reports: No Symptoms Respiratory: Reports: Cough. Denies: Shortness of Breath, Wheezing, Pleuritic Chest Pain, Sputum, Hemoptysis Cardiovascular: Reports: No Symptoms Endocrine: Reports: No Symptoms GI/Abdominal: Reports: Diarrhea. Denies: Abdominal Pain, Nausea, Vomiting : Reports: No Symptoms Musculoskeletal: Reports: No Symptoms Skin: Reports: No Symptoms Neurological: Reports: No Symptoms ED EXAM, GENERAL - Physical Exam Exam: See Below Exam Limited By: Uncooperative General Appearance: Alert, No Apparent Distress Eye Exam: Bilateral Eye: Normal Inspection Ears: Normal External Exam, Normal Canal, Hearing Grossly Normal, Normal TMs Nose: Normal Inspection, Normal Mucosa, No Blood Throat/Mouth: Normal Inspection, Normal Lips, Normal Gums, Normal Oropharynx, Normal Voice, No Airway Compromise Head: Atraumatic, Normocephalic Neck: Normal Inspection, Supple, Non-Tender. No: Lymphadenopathy (L), Lymphadenopathy (R) Respiratory/Chest: No Respiratory Distress, Lungs Clear, Normal Breath Sounds Cardiovascular: Regular Rate, Rhythm, No Edema, No Murmur GI/Abdominal: Normal Bowel Sounds, Soft, Non-Tender Course - Re-Assessments/Exams Free Text/Narrative Re-Assessment/Exam: 09/27/20 20:06 Patient was given 40 mEq of oral potassium as she was found to be hypokalemic. Of concern is the patient has some transaminase elevation this is new compared to her labs from her admission. At change of shift Dr. Walters assumed care. Departure - Departure Disposition: Home, Self-Care 01 Clinical Impression: Feeling unwell, SARS-CoV-2 positive - Discharge Information Referrals: Cathi Hauser MD [Primary Care Provider] - Forms: ED Department Discharge Additional Instructions: You are positive for Covid and understandably you are not feeling well. You have received maximal available treatment for this disease during your recent hospitalization. There are no salient abnormals in labs or imaging at this point. It is felt that she would be best at home but we would like for you to have an adult in the house with you. At least one of your adult children have graciously agreed to stay with you as you recover. Return to the ER for any edyta compromise in your status including inability to take nourishment, worsening shortness of breath chest pain or any other symptom of acute worsening. Sepsis Event Note (ED) - Evaluation Sepsis Screening Result: No Definite Risk <Judson Walters - Last Filed: 09/27/20 22:23> #1 Interpretation EKG Date: 09/27/20 Time: 19:50 Rhythm: NSR Rate (Beats/Min): 82 [place]: Normal P-Wave: Present QRS: Normal ST-T: Normal QT: Normal ID/PQ Interval: 160ms Comparison: No Change EKG Interpretation Comments: Low voltage as previous. No acute ischemic change. Course - Vital Signs Text/Narrative:: The patient had come in feeling unwell and saying that she did not wish to be alone at home at this point. Her is in the hospital being treated for Covid. Patient herself was positive for Covid was admitted briefly to the hospital and received maximal therapy directed toward Covid. Discussed with Dr. Byrnes, hospitalist. We discussed the patient's labs exam and imaging. No change of any significance and imaging. Patient with some relative hypoxemia but adequate oxygen saturations off oxygen. The patient agrees that there is no good reason to be readmitted to the hospital but does not wish to go home alone. Patient's adult daughter has been contacted and she agrees to stay with the patient while she recovers. As noted she has received maximal therapy with monoclonal antibodies and so forth and there is no indication for further antibiotic treatment or steroids at this point. Strict precautions for return to ER. Last Recorded V/S: Last Vital Signs Temp 36.6 C 09/27/20 13:26 Pulse 85 09/27/20 13:26 Resp 16 09/27/20 13:26 BP 107/65 09/27/20 13:26 Pulse Ox 93 L 09/27/20 13:26 - Orders/Labs/Meds Orders: Active Orders 24 hr Category Date Time Status EKG Documentation Completion [RC] STAT Care 09/27/20 19:25 Active Chest 1V Frontal [CR] Stat Exams 09/27/20 19:23 Taken Sodium Chloride 0.9% [Normal Saline] 1,000 ml Med 09/27/20 21:00 Active IV ASDIRECTED Medication Orders Sodium Chloride (Normal Saline) 1,000 mls @ 100 mls/hr IV ASDIRECTED OBIE Last Admin: 09/27/20 21:56 Dose: 100 mls/hr Documented by: MANISHA Labs: Laboratory Tests 09/27/20 09/27/20 09/27/20 Range/Units 15:26 15:26 18:25 WBC 8.90 (3.98-10.04) K/mm3 RBC 4.61 (3.98-5.22) M/mm3 Hgb 13.2 (11.2-15.7) gm/dl Hct 39.4 (34.1-44.9) % MCV 85.5 (79.4-94.8) fl MCH 28.6 (25.6-32.2) pg MCHC 33.5 (32.2-35.5) g/dl RDW Std Deviation 37.7 (36.4-46.3) fL Plt Count 257 (182-369) K/mm3 MPV 9.3 L (9.4-12.3) fl Neut % (Auto) 85.4 H (34.0-71.1) % Lymph % (Auto) 10.0 L (19.3-51.7) % [place] % (Auto) 4.2 L (4.7-12.5) % Eos % (Auto) 0 L (0.7-5.8) Baso % (Auto) 0.1 (0.1-1.2) % Neut # (Auto) 7.60 H (1.56-6.13) K/mm3 Lymph # (Auto) 0.89 L (1.18-3.74) K/mm3 [place] # (Auto) 0.37 H (0.24-0.36) K/mm3 Eos # (Auto) 0.00 L (0.04-0.36) K/mm3 Baso # (Auto) 0.01 (0.01-0.08) K/mm3 Manual Slide Review Abnormal smear D-Dimer, Quantitative (0.19-0.50) mg/L Puncture Site ABG pH (7.35-7.45) ABG pCO2 (35.0-45.0) mmHg ABG pO2 (80.0-100.0) mmHg ABG HCO3 (22.0-26.0) meq/L ABG O2 Saturation (96.0-97.0) % ABG Base Excess (-2-2.0) A-a Gradient mmHg O2 Delivery Device FiO2 (21.00-100.00) % Sodium 138 (136-145) mEq/L Potassium 3.3 L (3.5-5.1) mEq/L Chloride 100 (98-107) mEq/L Carbon Dioxide 28 (21-32) mEq/L Anion Gap 13.3 (5-15) BUN 12 (7-18) mg/dL Creatinine 1.3 H (0.55-1.02) mg/dL Est Cr Clr Drug Dosing 40.38 mL/min Estimated GFR (MDRD) 42 (>60) mL/min BUN/Creatinine Ratio 9.2 L (14-18) Glucose 101 (80-115) mg/dL Calcium 8.0 L (8.5-10.1) mg/dL Magnesium (1.8-2.4) mg/dl Total Bilirubin 0.6 (0.2-1.0) mg/dL AST 225 H (15-37) U/L ALT 176 H (14-59) U/L Alkaline Phosphatase 64 (46-116) U/L Troponin I (0.00-0.056) ng/mL NT-Pro-B Natriuret Pep (0-125) pg/mL Total Protein 7.5 (6.4-8.2) g/dl Albumin 3.4 (3.4-5.0) g/dl Globulin 4.1 gm/dL Albumin/Globulin Ratio 0.8 L (1-2) Urine Color Light yellow (Yellow) Urine Appearance Clear (Clear) Urine pH 6.5 (5.0-8.0) Ur Specific [place] 1.015 (1.005-1.030) Urine Protein Trace H (Negative) Urine Glucose (UA) Negative (Negative) Urine Ketones Negative (Negative) Urine Occult Blood 1+ H (Negative) Urine Nitrite Negative (Negative) Urine Bilirubin Negative (Negative) Urine Urobilinogen 0.2 (0.2-1.0) Ur Leukocyte Esterase Negative (Negative) Urine RBC 0-5 (0-5) /hpf Urine WBC 0-5 (0-5) /hpf Ur Squamous Epith Cells 0-5 (0-5) /hpf Urine Bacteria Moderate H (FEW) /hpf Urine Mucus Few (FEW) /hpf 09/27/20 09/27/20 09/27/20 Range/Units 19:44 19:44 19:44 WBC (3.98-10.04) K/mm3 RBC (3.98-5.22) M/mm3 Hgb (11.2-15.7) gm/dl Hct (34.1-44.9) % MCV (79.4-94.8) fl MCH (25.6-32.2) pg MCHC (32.2-35.5) g/dl RDW Std Deviation (36.4-46.3) fL Plt Count (182-369) K/mm3 MPV (9.4-12.3) fl Neut % (Auto) (34.0-71.1) % Lymph % (Auto) (19.3-51.7) % [place] % (Auto) (4.7-12.5) % Eos % (Auto) (0.7-5.8) Baso % (Auto) (0.1-1.2) % Neut # (Auto) (1.56-6.13) K/mm3 Lymph # (Auto) (1.18-3.74) K/mm3 [place] # (Auto) (0.24-0.36) K/mm3 Eos # (Auto) (0.04-0.36) K/mm3 Baso # (Auto) (0.01-0.08) K/mm3 Manual Slide Review D-Dimer, Quantitative 0.63 H (0.19-0.50) mg/L Puncture Site ABG pH (7.35-7.45) ABG pCO2 (35.0-45.0) mmHg ABG pO2 (80.0-100.0) mmHg ABG HCO3 (22.0-26.0) meq/L ABG O2 Saturation (96.0-97.0) % ABG Base Excess (-2-2.0) A-a Gradient mmHg O2 Delivery Device FiO2 (21.00-100.00) % Sodium (136-145) mEq/L Potassium (3.5-5.1) mEq/L Chloride (98-107) mEq/L Carbon Dioxide (21-32) mEq/L Anion Gap (5-15) BUN (7-18) mg/dL Creatinine (0.55-1.02) mg/dL Est Cr Clr Drug Dosing mL/min Estimated GFR (MDRD) (>60) mL/min BUN/Creatinine Ratio (14-18) Glucose (80-115) mg/dL Calcium (8.5-10.1) mg/dL Magnesium 2.0 (1.8-2.4) mg/dl Total Bilirubin (0.2-1.0) mg/dL AST (15-37) U/L ALT (14-59) U/L Alkaline Phosphatase (46-116) U/L Troponin I < 0.017 (0.00-0.056) ng/mL NT-Pro-B Natriuret Pep 817 H (0-125) pg/mL Total Protein (6.4-8.2) g/dl Albumin (3.4-5.0) g/dl Globulin gm/dL Albumin/Globulin Ratio (1-2) Urine Color (Yellow) Urine Appearance (Clear) Urine pH (5.0-8.0) Ur Specific [place] (1.005-1.030) Urine Protein (Negative) Urine Glucose (UA) (Negative) Urine Ketones (Negative) Urine Occult Blood (Negative) Urine Nitrite (Negative) Urine Bilirubin (Negative) Urine Urobilinogen (0.2-1.0) Ur Leukocyte Esterase (Negative) Urine RBC (0-5) /hpf Urine WBC (0-5) /hpf Ur Squamous Epith Cells (0-5) /hpf Urine Bacteria (FEW) /hpf Urine Mucus (FEW) /hpf /09/14 Range/Units 20:00 WBC (3.98-10.04) K/mm3 RBC (3.98-5.22) M/mm3 Hgb (11.2-15.7) gm/dl Hct (34.1-44.9) % MCV (79.4-94.8) fl MCH (25.6-32.2) pg MCHC (32.2-35.5) g/dl RDW Std Deviation (36.4-46.3) fL Plt Count (182-369) K/mm3 MPV (9.4-12.3) fl Neut % (Auto) (34.0-71.1) % Lymph % (Auto) (19.3-51.7) % [place] % (Auto) (4.7-12.5) % Eos % (Auto) (0.7-5.8) Baso % (Auto) (0.1-1.2) % Neut # (Auto) (1.56-6.13) K/mm3 Lymph # (Auto) (1.18-3.74) K/mm3 [place] # (Auto) (0.24-0.36) K/mm3 Eos # (Auto) (0.04-0.36) K/mm3 Baso # (Auto) (0.01-0.08) K/mm3 Manual Slide Review D-Dimer, Quantitative (0.19-0.50) mg/L Puncture Site Rt brachial ABG pH 7.45 (7.35-7.45) ABG pCO2 33.8 L (35.0-45.0) mmHg ABG pO2 66.0 L (80.0-100.0) mmHg ABG HCO3 23.0 (22.0-26.0) meq/L ABG O2 Saturation 94.3 L (96.0-97.0) % ABG Base Excess -0.2 (-2-2.0) A-a Gradient 42 mmHg O2 Delivery Device Room aiir FiO2 21.00 (21.00-100.00) % Sodium (136-145) mEq/L Potassium (3.5-5.1) mEq/L Chloride (98-107) mEq/L Carbon Dioxide (21-32) mEq/L Anion Gap (5-15) BUN (7-18) mg/dL Creatinine (0.55-1.02) mg/dL Est Cr Clr Drug Dosing mL/min Estimated GFR (MDRD) (>60) mL/min BUN/Creatinine Ratio (14-18) Glucose (80-115) mg/dL Calcium (8.5-10.1) mg/dL Magnesium (1.8-2.4) mg/dl Total Bilirubin (0.2-1.0) mg/dL AST (15-37) U/L ALT (14-59) U/L Alkaline Phosphatase (46-116) U/L Troponin I (0.00-0.056) ng/mL NT-Pro-B Natriuret Pep (0-125) pg/mL Total Protein (6.4-8.2) g/dl Albumin (3.4-5.0) g/dl Globulin gm/dL Albumin/Globulin Ratio (1-2) Urine Color (Yellow) Urine Appearance (Clear) Urine pH (5.0-8.0) Ur Specific [place] (1.005-1.030) Urine Protein (Negative) Urine Glucose (UA) (Negative) Urine Ketones (Negative) Urine Occult Blood (Negative) Urine Nitrite (Negative) Urine Bilirubin (Negative) Urine Urobilinogen (0.2-1.0) Ur Leukocyte Esterase (Negative) Urine RBC (0-5) /hpf Urine WBC (0-5) /hpf Ur Squamous Epith Cells (0-5) /hpf Urine Bacteria (FEW) /hpf Urine Mucus (FEW) /hpf Meds: Medications Generic Name Dose Route Start Last Admin Trade Name Dann PRN Reason Stop Dose Admin Sodium Chloride 1,000 mls @ 100 mls/hr 09/27/20 21:00 09/27/20 21:56 Normal Saline IV 100 mls/hr ASDIRECTED OBIE Administration Discontinued Medications Generic Name Dose Route Start Last Admin Trade Name Freq PRN Reason Stop Dose Admin Potassium Chloride 40 meq 09/27/20 18:15 09/27/20 18:35 Potassium Chloride 20 Meq Tab.Er PO 09/27/20 18:16 40 meq ONETIME ONE Administration Departure - Departure Time of Disposition: 22:21 Condition: Good Sepsis Event Note (ED) - Focused Exam Vital Signs: Vital Signs Temp Pulse Resp BP Pulse Ox 09/27/20 13:26 36.6 C 85 16 107/65 93 L - My Orders Last 24 Hours: My Active Orders 09/27/20 19:23 Chest 1V Frontal [CR] Stat 09/27/20 19:25 EKG Documentation Completion [RC] STAT 09/27/20 21:00 Sodium Chloride 0.9% [Normal Saline] 1,000 ml IV ASDIRECTED - Assessment/Plan Last 24 Hours: My Active Orders 09/27/20 19:23 Chest 1V Frontal [CR] Stat 09/27/20 19:25 EKG Documentation Completion [RC] STAT 09/27/20 21:00 Sodium Chloride 0.9% [Normal Saline] 1,000 ml IV ASDIRECTED
[2020-09-27] MEDS ORDERED: Potassium Chloride 20 MEQ Tab.ER PO ONE (18:15)
[2020-09-27] MEDS ORDERED: Sodium Chloride 0.9% 1,000 ML IV SCH (21:00)
--- NOTE | 2020-09-29 07:53 | CR ---
Chest: Portable view of the chest was obtained. Comparison: Prior chest x-ray at 09/25/20. Patchy areas of increased density are seen within the left chest as well as right lung base. Findings have appeared from prior study and presumably represent mild COVID pneumonia. Heart size and mediastinum are normal. Bony structures are unremarkable. Impression: 1. Slight areas of COVID pneumonia as noted above. Diagnostic code #3
== END 2020-09-27 22:48 | disposition home or self-care (01) ==
LOC: JD.ED 13:21
DX: U07.1 COVID-19 (principal); Z79.899 Other long term (current) drug therapy
CPT/HCPCS: 36415; 36600; 71045; 80053; 81001; 82803; 83735; 83880; 84484; 85025; 85379; 93005; 99285; A9270; J7030; 99283